=== PATIENT | male | born 1970 | race African-American/Black ===

== ENCOUNTER 2017-01-07 07:46 | Emergency (ER) | payer SELFPAY ==
[~2017-01-07] VITALS: Ht 177.8 cm; Wt 68.0 kg
[~2017-01-07 07:46] MED LIST: IBUP800T23 PO
[2017-01-07 07:47] VITALS: BP 169/79; PULSE 64; RESP 15; TEMP 98.2; O2SAT 99
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
[2017-01-07] MEDS ORDERED: BUPIVACAINE HCL PF 0.25% 10 ML VIAL NERV BLOCK ONE (08:15)
[2017-01-07] MEDS ORDERED: LIDOCAINE 1%/EPINEPHrine 1:100,000 SOLN 20 ML VIAL INFIL ONE (08:15)
[2017-01-07] MEDS ORDERED: SULFAMETHOXAZOLE-TRIMETHOPRIM DS 800-160 MG TAB PO ONE (09:00)
[2017-01-07] MEDS ORDERED: BACT800T5 PO (09:04)
[2017-01-07] MEDS ORDERED: MIRA33504 PO (09:04)
== END 2017-01-07 09:17 | disposition home or self-care (01) ==
LOC: NEPE 07:46
DX: K61.1 Rectal abscess (principal); F17.210 Nicotine dependence, cigarettes, uncomplicated; F14.10 Cocaine abuse, uncomplicated; F10.10 Alcohol abuse, uncomplicated; B96.1 Klebsiella pneumoniae [K. pneumoniae] as the cause of diseases classified elsewhere
CPT/HCPCS: 46040; 87070; 87077; 87186

== ENCOUNTER 2017-01-09 08:13 | Emergency (ER) | payer SELFPAY ==
[~2017-01-09] VITALS: Ht 177.8 cm; Wt 69.0 kg
[~2017-01-09 08:13] MED LIST changes: +BACT800T5 PO; +MIRA33504 PO
[2017-01-09 08:15] VITALS: BP 124/72; PULSE 58; RESP 18; TEMP 98.7; O2SAT 99
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
[2017-01-09] MEDS ORDERED: IBUP800T23 PO (08:35)
[2017-01-09] MEDS ORDERED: KETOROLAC TROMETHAMINE 60 MG/2 ML (IM) VIAL IM ONE (08:45)
== END 2017-01-09 08:57 | disposition home or self-care (01) ==
LOC: NEPK 08:13
DX: K61.1 Rectal abscess (principal); Z48.01 Encounter for change or removal of surgical wound dressing
CPT/HCPCS: 96372; 99282; J1885

== ENCOUNTER 2017-07-27 20:16 | Emergency (ER) | payer SELFPAY ==
[~2017-07-27] VITALS: Ht 180.3 cm; Wt 60.0 kg
[~2017-07-27 20:16] MED LIST changes: +IBUP1TAB7 PO
[2017-07-27 20:17] VITALS: BP 168/84; PULSE 89; RESP 18; TEMP 98.2
[2017-07-27] MEDS ORDERED: TETANUS/DIPHTHERIA TOXOID ADULT 0.5 ML VIAL IM ONE (22:15)
[2017-07-27] MEDS ORDERED: KETOROLAC TROMETHAMINE 60 MG/2 ML (IM) VIAL IM ONE (22:15)
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
[2017-07-27 23:18] VITALS: BP 121/84; TEMP 98.1
== END 2017-07-27 23:18 | disposition home or self-care (01) ==
LOC: NEPD 20:16
DX: S60.222A Contusion of left hand, initial encounter (principal); S60.221A Contusion of right hand, initial encounter; S60.512A Abrasion of left hand, initial encounter; S60.511A Abrasion of right hand, initial encounter; F17.200 Nicotine dependence, unspecified, uncomplicated; V18.4XXA Pedal cycle driver injured in noncollision transport accident in traffic accident, initial encounter; Z23 Encounter for immunization
CPT/HCPCS: 73130; 90471; 90714; 96372; 99284; J1885

== ENCOUNTER 2017-08-29 18:39 | Emergency (ER) | payer SELFPAY ==
[~2017-08-29] VITALS: Ht 179.1 cm; Wt 65.9 kg
[2017-08-29 18:39] VITALS: BP 178/102; PULSE 90; RESP 18; TEMP 99; O2SAT 98
--- NOTE | 2017-08-29 19:49 | RADRPT ---
EXAM DATE/TIME: 08/29/2017 19:24 [facility] COMPARISON: No previous studies available for comparison. INDICATIONS : Left wrist pain with no known injury. MEDICAL HISTORY : None. SURGICAL HISTORY : None. ENCOUNTER: Initial ACUITY: >1 year PAIN SCORE: 10/10 LOCATION: Left proximal 1st digit. FINDINGS: No definite fractures, or dislocations are identified. No definite lytic or sclerotic lesion is seen . The joint spaces are well maintained. CONCLUSION: Unremarkable study. Rebeca Brasher MD on August 29, 2017 at 19:47 Board Certified Radiologist. This report was verified electronically.
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
== END 2017-08-29 20:10 | disposition left against medical advice (07) ==
LOC: NEPK 18:39
DX: M79.645 Pain in left finger(s) (principal); M79.644 Pain in right finger(s); V19.9XXD Pedal cyclist (driver) (passenger) injured in unspecified traffic accident, subsequent encounter; Y93.55 Activity, bike riding; Z72.0 Tobacco use
CPT/HCPCS: 73100; 99283